=== PATIENT | female | born 1995 | race Two or more races ===

== ENCOUNTER 2019-08-14 15:10 | Emergency (ER) | payer OTHER ==
--- NOTE | 2019-08-14 16:11 | ER Document Report ---
ED Medical Screen (RME) - General Chief Complaint: Chest Pain Stated Complaint: CHEST PAIN Time Seen by Provider: 08/14/19 15:53 Mode of Arrival: Ambulatory Information source: Patient Notes: 27-year-old female patient presenting to the emergency department chief complaint of chest pain and shortness of breath. Patient reports intermittent chest pain over the last 2 months, worsening over the last few days. She states it feels like a pressure on the left side of her chest that radiates up into her neck. She does report that sometimes it is associated with anxiety however sometimes it comes on its own. She reports associated nausea yesterday but none today. Denies any cardiac history. Heart sounds S1-S2 present, normal rate, normal rhythm. I have greeted and performed a rapid initial assessment of this patient. A comprehensive ED assessment and evaluation of the patient, analysis of test results and completion of the medical decision making process will be conducted by additional ED providers. I have specifically instructed the patient or family members with the patient to immediately return to any nursing staff should anything change in the patient's condition or with their chief complaint. TRAVEL OUTSIDE OF THE [place] IN LAST 30 DAYS: No - Related Data Allergies/Adverse Reactions: shellfish derived Allergy (Verified 08/14/19 15:54) Past Medical History - Social History Frequency of alcohol use: Occasional Drug Abuse: None Physical Exam - Vital signs Vitals: Temp Pulse Resp BP Pulse Ox 97.5 F 71 16 129/71 H 99 08/14/19 15:31 08/14/19 15:31 08/14/19 15:31 08/14/19 15:31 08/14/19 15:31 Course - Vital Signs Vital signs: Temp Pulse Resp BP Pulse Ox 97.5 F 71 16 129/71 H 99 08/14/19 15:31 08/14/19 15:31 08/14/19 15:31 08/14/19 15:31 08/14/19 15:31
--- NOTE | 2019-08-14 16:41 | ER Document Report ---
ED General - General Chief Complaint: Chest Pain Stated Complaint: CHEST PAIN Time Seen by Provider: 08/14/19 15:53 Mode of Arrival: Ambulatory Information source: Patient Notes: Pt presents to the ED with reports of chest pain. Pt states she has been having chest pain for the past few months and states lately it has been more frequently. Pt states pain is on the L side of chest and pt describes it as a "tightness" and "sharp". Pt states she is currently having chest pain and states it radiates to the neck. Pt states she is dizzy. Pt states she will sometimes get "palpitations" in her L arm. Pt alert and oriented with NAD noted. Pt breaths even and unlabored with airway patent and intact. Will continue to monitor. per triage note 24-year-old female arrives with her good friend with chief complaint of several month history of left anterior chest pain when she lays down takes a big breath or moves her left arm in a upwards direction or rotational direction. Patient denies any breast masses or lumps or any infections around her nipple or her axillary area. Patient denies any cough or cold symptoms or trauma. TRAVEL OUTSIDE OF THE [place] IN LAST 30 DAYS: No - HPI Onset: Just prior to arrival Onset/Duration: Persistent Quality of pain: Achy Severity: Mild Pain Level: 1 Associated symptoms: None Exacerbated by: Denies Relieved by: Denies Similar symptoms previously: Yes Recently seen / treated by doctor: No - Related Data Allergies/Adverse Reactions: shellfish derived Allergy (Verified 08/14/19 15:54) Past Medical History - General Information source: Patient - Social History Smoking Status: Never Smoker Cigarette use (# per day): No Chew tobacco use (# tins/day): No Smoking Education Provided: No Frequency of alcohol use: Occasional Drug Abuse: None Lives with: Family Family History: Reviewed & Not Pertinent Patient has suicidal ideation: No Patient has homicidal ideation: No Review of Systems - Review of Systems Constitutional: No symptoms reported EENT: No symptoms reported Cardiovascular: See HPI, Chest pain - Left anterior chest muscle pain on palpation and upon laying back referring to her left jaw. Respiratory: No symptoms reported Gastrointestinal: No symptoms reported Genitourinary: No symptoms reported Female Genitourinary: No symptoms reported Musculoskeletal: No symptoms reported Skin: No symptoms reported Hematologic/Lymphatic: No symptoms reported Neurological/Psychological: No symptoms reported Physical Exam - Vital signs Vitals: Temp Pulse Resp BP Pulse Ox 97.5 F 71 16 129/71 H 99 08/14/19 15:31 08/14/19 15:31 08/14/19 15:31 08/14/19 15:31 08/14/19 15:31 Interpretation: Normal - HEENT Head: Normocephalic Eyes: Normal Conjunctiva: Normal Cornea: Normal Extraocular movements intact: Yes Eyelashes: Normal Pupils: PERRL Sinus: Normal Nasal: Normal Mouth/Lips: Normal Pharynx: Normal Neck: Normal - Respiratory Respiratory status: No respiratory distress Chest status: Tender - Left anterior chest wall pain on palpation and range of motion and inspiration Breath sounds: Normal - Cardiovascular Heart sounds: Normal auscultation Murmur: Yes Systolic murmur grade 1-6: 2 - Mitral valve click Friction rub: No Zeny's crunch: No - Abdominal Inspection: Normal Distension: No distension Bowel sounds: Normal Tenderness: Nontender Organomegaly: No organomegaly - Ablated talking the room - Back Back: Normal - Extremities General upper extremity: Normal inspection General lower extremity: Normal inspection - Neurological Neuro grossly intact: Yes Cognition: Normal Orientation: AAOx4 Amanda Coma Scale Eye Opening: Spontaneous Amanda Coma Scale Verbal: Oriented [place] Coma Scale Motor: Obeys Commands Amanda Coma Scale Total: 15 Speech: Normal Cranial nerves: Normal Cerebellar coordination: Normal Motor strength normal: LUE, RUE, LLE, RLE - Psychological Associated symptoms: Normal affect - Skin Skin Temperature: Warm Skin Moisture: Dry Course - Vital Signs Vital signs: Temp Pulse Resp BP Pulse Ox 98.3 F 71 16 118/58 L 100 08/14/19 20:43 08/14/19 20:43 08/14/19 20:43 08/14/19 20:43 08/14/19 20:43 - Laboratory Result Diagrams: 08/14/19 16:36 08/14/19 16:36 Laboratory results interpreted by me: 08/14/19 08/14/19 16:36 18:20 MCV 79 L RDW 14.4 H Urine Blood SMALL H - Diagnostic Test Radiology reviewed: Reports reviewed Critical Care Note - Critical Care Note Total time excluding time spent on procedures (mins): 90 Comments: I discussed this case with Dr. Malik and advised patient that she should follow-up with him. 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
[2019-08-14 16:59] LABS: ABSOLUTE EOSINOPHILS # (AUTO) 0.1 10^3/uL (0.0-0.6); ABSOLUTE LYMPHOCYTES (AUTO) 2.4 10^3/uL (0.5-4.7); ABSOLUTE MONOCYTES (AUTO) 0.4 10^3/uL (0.1-1.4); ABSOLUTE NEUT (AUTO) 3.5 10^3/uL (1.7-8.2); BASOPHILS % (AUTO) 0.5 % (0-2); EOSINOPHILS % (AUTO) 2.2 % (0-6); HEMOGLOBIN 12.7 g/dL (12.0-15.5); LYMPHOCYTES % (AUTO) 36.9 % (13-45); MEAN CORPUSCULAR HEMOGLOBIN 27.2 pg (27.0-33.4); MEAN CORPUSCULAR HGB CONC 34.2 g/dL (32.0-36.0); MEAN CORPUSCULAR VOLUME 79 fl (80-97); MONOCYTES % (AUTO) 6.1 % (3-13); PLATELET COUNT 333 10^3/uL (150-450); RED BLOOD COUNT 4.67 10^6/uL (3.72-5.28); RED CELL DISTRIBUTION WIDTH 14.4 % (11.5-14.0); SEGMENTED NEUTROPHILS % (AUTO) 54.3 % (42-78); TOTAL CELLS COUNTED % (AUTO) 100 %; WHITE BLOOD COUNT 6.5 10^3/uL (4.0-10.5)
--- NOTE | 2019-08-14 17:05 | RADIOLOGY REPORT (SQ) ---
EXAM DESCRIPTION: CHEST 2 VIEWS COMPLETED DATE/TIME: 08/14/2019 4:51 pm REASON FOR STUDY: cough/fever COMPARISON: None. EXAM PARAMETERS: NUMBER OF VIEWS: two views TECHNIQUE: Digital Frontal and Lateral radiographic views of the chest acquired. RADIATION DOSE: NA LIMITATIONS: none FINDINGS: LUNGS AND PLEURA: No opacities, masses or pneumothorax. No pleural effusion. MEDIASTINUM AND HILAR STRUCTURES: No masses or contour abnormalities. HEART AND VASCULAR STRUCTURES: Heart normal size. No evidence for failure. BONES: No acute findings. HARDWARE: None in the chest. OTHER: No other significant finding. IMPRESSION: 1. NO ACUTE RADIOGRAPHIC FINDING IN THE CHEST. TECHNICAL DOCUMENTATION: JOB ID: [id number] 2010 [employer]- All Rights Reserved Reading location - IP/workstation name: [email or web address]
[2019-08-14 17:17] LABS: ALBUMIN 4.2 g/dL (3.5-5.0); ALKALINE PHOSPHATASE 63 U/L (38-126); ANION GAP 11 (5-19); ASPARTATE AMINO TRANSFERASE 28 U/L (14-36); BILIRUBIN,DIRECT 0.3 mg/dL (0.0-0.4); BILIRUBIN,TOTAL 0.3 mg/dL (0.2-1.3); BLOOD UREA NITROGEN 15 mg/dL (7-20); CALCIUM 9.3 mg/dL (8.4-10.2); CARBON DIOXIDE 26 mmol/L (22-30); CHLORIDE 102 mmol/L (98-107); GLUCOSE 87 mg/dL (75-110); POTASSIUM 4.6 mmol/L (3.6-5.0); TOTAL PROTEIN 7.5 g/dL (6.3-8.2)
[2019-08-14 18:55] LABS: APPEARANCE,URINE CLEAR; BILIRUBIN,URINE NEGATIVE (NEGATIVE); COLOR,URINE YELLOW; GLUCOSE, URINE NEGATIVE (NEGATIVE); KETONES,URINE NEGATIVE (NEGATIVE); LEUKOCYTE ESTERASE,URINE NEGATIVE (NEGATIVE); NITRITE,URINE NEGATIVE (NEGATIVE); PROTEIN,URINE NEGATIVE (NEGATIVE); URINE SPECIFIC GRAVITY 1.015; UROBILINOGEN,URINE NEGATIVE mg/dL (<2.0)
--- NOTE | 2019-08-14 19:03 | EKG REPORT ---
SEVERITY:- NORMAL ECG - SINUS RHYTHM : Confirmed by: Karolyn Chandra 14-Aug-2019 19:02:42
[2019-08-14 20:44] VITALS: BP 118/58
== END 2019-08-14 21:02 | disposition home or self-care (01) ==
LOC: ER 15:10 → EDBD 15:10 → ER 21:02
DX: M94.0 Chondrocostal junction syndrome [Tietze] (principal); I34.0 Nonrheumatic mitral (valve) insufficiency; R42 Dizziness and giddiness; Z91.013 Allergy to seafood
CPT/HCPCS: 36415; 71046; 80053; 81001; 81025; 84443; 84484; 85025; 85379; 93005; 93010; 99291; 99292